=== PATIENT | female | born 1970 | race Caucasian/White ===

== ENCOUNTER → 2017-09-30 | Outpatient (CLI) | payer OTHER, MEDICAID ==
[~2017-09-30] MED LIST: CITA-139 PO; CLON-389 PO; CLON0.255 PO; DOCU240C67 PO; DULERAPT INH; ESCI10TA8 PO; GLUC100026 PO; LAMO25TB2 PO; LORA10CA3 PO; MONT10TA PO; PANT40TA65 PO; PROG100C PO; RANI75TA5 PO; ROPI1TAB35 PO; ROPI1TAB36 PO; SIMV5TAB60 PO; ZOLP-1 PO
--- NOTE | 2017-10-03 11:47 | RADIOLOGY IMAGING REPORT ---
FACILITY: [facility] PATIENT NAME: CASI KENNEDY : [id number] MR: [id number] V: [id number] EXAM DATE: ORDERING PHYSICIAN: JAMIA HUGGINS TECHNOLOGIST: Ivette Rowan PROCEDURE:BILATERAL DIGITAL SCREENING MAMMOGRAM WITH CAD ASSISTED INTERPRETATION & 3D TOMOSYNTHESIS COMPARISON:Prior mammograms 01/08/16, 02/22/14, 07/20/13, 01/23/13, 01/19/13, 07/14/11 INDICATIONS:SCREENING FINDINGS: A small amount of fibroglandular tissue is seen throughout the breasts. The parenchymal pattern has remained stable allowing for difference in mammographic technique & patient positioning. There is no evidence of malignant appearing mass, malignant appearing calcifications or other secondary sign of malignancy in either breast. DIAGNOSTIC CATEGORY 1--NEGATIVE. RECOMMENDATIONS: ROUTINE MAMMOGRAM AND CLINICAL EVALUATION. IMPRESSION: BIRADS 1: Negative No significant abnormality is seen Dictated by: Katrina Germain M.D. on 09/30/2017 at 14:49 Transcribed by: AL on 09/30/2017 at 15:17 Approved by: Katrina Germain M.D. on 10/03/2017 at 11:46 [facility]
== END ==
LOC: MAMO 13:54
PROVIDERS: ATTEND Nurse Practitioner Family
DX: Z12.31 Encounter for screening mammogram for malignant neoplasm of breast (principal)
CPT/HCPCS: 77063; 77067

== ENCOUNTER 2018-04-11 13:50 | Emergency (ER) | payer MEDICAID, OTHER ==
[~2018-04-11 13:50] MED LIST changes: -CITA-139 PO; +CITA-145 PO
--- NOTE | 2018-04-11 13:56 | ER Report ---
History and Physical Time Seen By MD: 13:56 HPI/ROS CHIEF COMPLAINT: Chest tightness HISTORY OF PRESENT ILLNESS: Patient is a 47-year-old female here with complaints of left-sided chest tightness was slight radiation into the shoulder and left arm which started approximately half hour prior to arrival. Patient reports that she was sitting at her computer when she became anxious and mildly short of breath with chest tightness. Denies prior history of cardiac disease however she does have history of anxiety which is treated with hydroxyzine, Wellbutrin. Patient denies fevers, chills, headache, blurred vision, nausea, vomiting, abdominal pain. REVIEW OF SYSTEMS: Constitutional: No fever, no chills. Eyes: No discharge. ENT: No sore throat. Cardiovascular: + chest tightness, no palpitations. Respiratory: No cough, no shortness of breath. Gastrointestinal: No abdominal pain, no vomiting. Genitourinary: No hematuria. Musculoskeletal: No back pain. Skin: No rashes. Neurological: No headache. Allergies: Coded Allergies: Penicillins (Verified Allergy, Unknown, 04/11/18) oxycodone (Verified Allergy, Unknown, 04/11/18) Home Meds Active Scripts Lorazepam (ATIVAN) 1 Mg Tablet, 1 MG PO Q4-6H PRN for ANXIETY, #5 TAB Prov:FEDERICONGHIA S DO 04/11/18 Reported Medications Hydroxyzine Hcl (HYDROXYZINE HCL) 10 Mg Tablet, 10 MG PO 04/11/18 Bupropion Hcl (WELLBUTRIN XL) 150 Mg Tab.er.24h, 150 MG PO QDAY, TAB 04/11/18 Lamotrigine (LAMOTRIGINE) 100 Mg Tablet, 100 MG PO 04/11/18 Simvastatin (SIMVASTATIN) 20 Mg Tablet, 10 MG PO HS, TAB 04/11/18 Zolpidem Tartrate (AMBIEN) 5 Mg Tablet, 1 TAB PO QHS, TAB 06/24/17 Loratadine (CLARITIN) 10 Mg Capsule, 10 MG PO, CAPSULE 06/24/17 Ropinirole Hcl (REQUIP) 1 Mg Tablet, 0.5 MG PO 06/24/17 Glucosamine Sulfate 2KCL (GLUCOSAMINE) 1,000 Mg Tablet, 1000 MG PO 06/24/17 Pantoprazole Sodium (PANTOPRAZOLE SODIUM) 40 Mg Tablet.dr, 40 MG PO QDAY, TAB.SR 06/24/17 Escitalopram Oxalate (ESCITALOPRAM OXALATE) 10 Mg Tablet, 10 MG PO QDAY, TAB 06/24/17 Mometasone/Formoterol (DULERA 200 MCG/5 MCG INHALER) 13 Gm Inh, 13 GM INH, INH 09/19/16 Montelukast Sodium (SINGULAIR) 10 Mg Tablet, 1 TAB PO QDAY, TAB 09/19/16 Discontinued Reported Medications Simvastatin (SIMVASTATIN) 5 Mg Tablet, PO HS, TAB 09/19/16 Lamotrigine (LAMICTAL) 25 Mg Tb.chw.dsp, 250 MG PO 05/09/13 Hx Smoking: Yes (1ppd) Smoking Status: Never Smoker Hx Substance Use Disorder: No Hx Alcohol Use: Yes (rare) Constitutional Vital Sign - Last 24 Hours 04/11/18 04/11/18 04/11/18 04/11/18 13:50 13:55 13:56 14:00 Pulse ? 74 Resp 6 B/P (MAP) 145/105 (118) Pulse Ox 95 04/11/18 04/11/18 04/11/18 04/11/18 14:03 14:03 14:05 14:10 Temp 98.1 Pulse 76 76 73 Resp 14 6 16 B/P (MAP) 157/86 (109) 145/105 Pulse Ox 94 94 94 O2 Delivery Room Air 04/11/18 04/11/18 04/11/18 04/11/18 14:15 14:20 14:25 14:30 Pulse 70 71 ??? 72 Resp 04 12 18 B/P (MAP) 128/108 (115) Pulse Ox 93 92 90 04/11/18 04/11/18 04/11/18 14:35 14:40 14:45 Pulse 68 69 70 Resp 23 18 8 Pulse Ox 93 91 92 Physical Exam General Appearance: The patient is alert, has no immediate need for airway p rotection and no signs of toxicity. NAD Eyes: Pupils equal and round no pallor or injection. ENT, Mouth: Mucous membranes are moist. Respiratory: There are no retractions, lungs are clear to auscultation. Cardiovascular: Regular rate and rhythm. Gastrointestinal: Abdomen is soft and non tender, no masses, bowel sounds normal. Neurological: No focal deficits Skin: Warm and dry, no rashes. Musculoskeletal: Neck is supple non tender. Extremities are nontender, nonswollen and have full range of motion. DIFFERENTIAL DIAGNOSIS: After history and physical exam differential diagnosis was considered for chest pain including but not limited to myocardial ischemia, pericarditis pulmonary embolus, chest wall pain, pleural inflammation and pulmonary infectious causes, anxiety Medical Decision Making Data Points Result Diagram: 04/11/18 1400 04/11/18 1400 Laboratory Hematology Test 04/11/18 14:00 Red Blood Count 4.91 M/uL (4.17-5.56) Mean Corpuscular Volume 83.1 fL (80.0-96.0) Mean Corpuscular Hemoglobin 28.2 pg (26.0-33.0) Mean Corpuscular Hemoglobin Concent 33.9 g/dL (32.0-36.0) Red Cell Distribution Width 15.6 % (11.5-14.5) Mean Platelet Volume 9.6 fL (7.2-11.1) Neutrophils (%) (Auto) 66.5 % (39.4-72.5) Lymphocytes (%) (Auto) 22.9 % (17.6-49.6) Monocytes (%) (Auto) 8.6 % (4.1-12.4) Eosinophils (%) (Auto) 2.0 % (0.4-6.7) Basophils (%) (Auto) 0.0 % (0.3-1.4) Nucleated RBC Relative Count (auto) 0.0 /100WBC Neutrophils # (Auto) 5.6 K/uL (2.0-7.4) Lymphocytes # (Auto) 1.9 K/uL (1.3-3.6) Monocytes # (Auto) 0.7 K/uL (0.3-1.0) Eosinophils # (Auto) 0.2 K/uL (0.0-0.5) Basophils # (Auto) 0.0 K/uL (0.0-0.1) Nucleated RBC Absolute Count (auto) 0.00 K/uL Peripheral Blood Smear No Y/N Sodium Level 141 mmol/L (137-145) Potassium Level 3.8 mmol/L (3.5-5.0) Chloride Level 104 mmol/L (98-107) Carbon Dioxide Level 25 mmol/L (22-31) Blood Urea Nitrogen 15 mg/dl (7-18) Creatinine 0.70 mg/dl (0.52-1.04) Glomerular Filtration Rate Calc > 60.0 Random Glucose 96 mg/dl (75-110) Calcium Level 9.2 mg/dl (8.4-10.2) Total Bilirubin 0.3 mg/dl (0.2-1.3) Aspartate Amino Transf (AST/SGOT) 17 U/L (0-35) Alanine Aminotransferase (ALT/SGPT) 26 U/L (0-56) Alkaline Phosphatase 78 U/L (0-126) Troponin I < 0.012 ng/ml Total Protein 7.3 g/dl (6.3-8.2) Albumin 4.4 g/dl (3.5-5.0) Chemistry Test 04/11/18 14:00 White Blood Count 8.3 k/uL (4.5-11.0) Red Blood Count 4.91 M/uL (4.17-5.56) Hemoglobin 13.8 g/dL (12.0-16.0) Hematocrit 40.8 % (34.0-47.0) Mean Corpuscular Volume 83.1 fL (80.0-96.0) Mean Corpuscular Hemoglobin 28.2 pg (26.0-33.0) Mean Corpuscular Hemoglobin Concent 33.9 g/dL (32.0-36.0) Red Cell Distribution Width 15.6 % (11.5-14.5) Platelet Count 203 K/uL (150-450) Mean Platelet Volume 9.6 fL (7.2-11.1) Neutrophils (%) (Auto) 66.5 % (39.4-72.5) Lymphocytes (%) (Auto) 22.9 % (17.6-49.6) Monocytes (%) (Auto) 8.6 % (4.1-12.4) Eosinophils (%) (Auto) 2.0 % (0.4-6.7) Basophils (%) (Auto) 0.0 % (0.3-1.4) Nucleated RBC Relative Count (auto) 0.0 /100WBC Neutrophils # (Auto) 5.6 K/uL (2.0-7.4) Lymphocytes # (Auto) 1.9 K/uL (1.3-3.6) Monocytes # (Auto) 0.7 K/uL (0.3-1.0) Eosinophils # (Auto) 0.2 K/uL (0.0-0.5) Basophils # (Auto) 0.0 K/uL (0.0-0.1) Nucleated RBC Absolute Count (auto) 0.00 K/uL Peripheral Blood Smear No Y/N Glomerular Filtration Rate Calc > 60.0 Calcium Level 9.2 mg/dl (8.4-10.2) Total Bilirubin 0.3 mg/dl (0.2-1.3) Aspartate Amino Transf (AST/SGOT) 17 U/L (0-35) Alanine Aminotransferase (ALT/SGPT) 26 U/L (0-56) Alkaline Phosphatase 78 U/L (0-126) Troponin I < 0.012 ng/ml Total Protein 7.3 g/dl (6.3-8.2) Albumin 4.4 g/dl (3.5-5.0) EKG/Imaging EKG Interpretation Test Reason : CP Blood Pressure : / mmHG Vent. Rate : 076 BPM Atrial Rate : 076 BPM P-R Int : 152 ms QRS Dur : 098 ms QT Int : 414 ms P-R-T Axes : 056 036 051 degrees QTc Int : 465 ms Normal sinus rhythm T flattening consistent with septal ischemia vs normal variant When compared with ECG of 23-JUN-2017 23:59, No significant change was found Confirmed by GUY GLASS ([id number]) on 04/11/2018 5:08:40 PM Monitor Interpretation: Normal Sinus Rhythm Imaging Study: Frontal and lateral views of the chest Indication: Chest pain Comparison study: June 24, 2017 Findings: PA and lateral views of the chest demonstrate no evidence of acute infiltrate. There is no evidence of pleural effusion. There is no evidence of pneumothorax. The mediastinal, cardiac, and diaphragmatic contours are unremarkable. The visualized bony structures are unremarkable. IMPRESSION: Unremarkable chest. ED Course/Re-evaluation Clinical Indication for ER IV: Hydration, IV Access ED Course Patient is a 47-year-old female here with complaints of chest tightness, anxiety. EKG showed no ischemic changes. Chest x-ray showed no acute findings. Patient was given fluids, Ativan and Toradol with significant relief of symptoms. Troponin was negative. I showed the findings with the patient and she voiced understanding. I advised her to follow-up with her PCP in the next week. Patient was stable at time of discharge. Decision to Disposition Date: Apr 11, 2018 Decision to Disposition Time: 15:56 Depart Departure Latest Vital Signs Vital Signs Date Time Temp Pulse Resp B/P (MAP) Pulse Ox O2 Delivery O2 Flow Rate FiO2 04/11/18 14:45 70 8 92 04/11/18 14:30 128/108 (115) 04/11/18 14:03 98.1 Room Air Impression: Primary Impression: Chest tightness Additional Impression: Anxiety Condition: Improved Disposition: HOME OR SELF-CARE New Scripts Lorazepam (ATIVAN) 1 Mg Tablet 1 MG PO Q4-6H PRN for ANXIETY, #5 TAB Prov: NGHIA CABALLERO DO 04/11/18 Patient Instructions: Anxiety (ED), Chest Wall Pain (ED), Lorazepam (By mouth) Additional Instructions: He may take 1 tablet of Ativan every 6-8 hours as needed for anxiety. Please do not mix with alcohol or drive while taking this medication. Please return promptly if you develop chest pain, shortness of breath, fevers, worsening headache. Problem Qualifiers NGHIA CABALLERO DO Apr 11, 2018 13:56
[2018-04-11] MEDS ORDERED: LAMO100T52 PO (14:02)
[2018-04-11] MEDS ORDERED: SIMV-49 PO (14:02)
[2018-04-11] MEDS ORDERED: BUPR-472 PO (14:02)
[2018-04-11] MEDS ORDERED: HYDR10TA3 PO (14:11)
[2018-04-11] MEDS ORDERED: NS(*) 0.9% 1000 ML BAG 1,000 ML IV ONE (14:14)
[2018-04-11] MEDS ORDERED: LORazepam 2 MG/ML VIAL IVP ONE (14:15)
--- NOTE | 2018-04-11 14:22 | EKG ---
FACILITY: [facility] [place] PATIENT NAME: CASI KENNEDY : [id number] MR: [id number] V: [id number] EXAM DATE: ORDERING PHYSICIAN: NGHIA CABALLERO TECHNOLOGIST: MERRILL Fisher Reason : CP Blood Pressure : / mmHG Vent. Rate : 076 BPM Atrial Rate : 076 BPM P-R Int : 152 ms QRS Dur : 098 ms QT Int : 414 ms P-R-T Axes : 056 036 051 degrees QTc Int : 465 ms Normal sinus rhythm T flattening consistent with septal ischemia vs normal variant When compared with ECG of 23-JUN-2017 23:59, No significant change was found Confirmed by GUY GLASS ([id number]) on 04/11/2018 5:08:40 PM Referred By: Confirmed By:GUY GLASS
[2018-04-11 14:30] VITALS: BP 128/108
[2018-04-11 14:35] LABS: PLATELET COUNT, AUTOMATED 203 K/uL (150-450)
--- NOTE | 2018-04-11 14:51 | RADIOLOGY IMAGING REPORT ---
FACILITY: [facility] PATIENT NAME: Tracy Franklin : 1970 MR: [id number] V: [id number] EXAM DATE: ORDERING PHYSICIAN: NGHIA CABALLERO TECHNOLOGIST: Location: [facility] Patient: Tracy Franklin : 1970 Visit/Account:[id number] Date of Sevice: 04/11/2018 Study: Frontal and lateral views of the chest Indication: Chest pain Comparison study: June 24, 2017 Findings: PA and lateral views of the chest demonstrate no evidence of acute infiltrate. There is no evidence of pleural effusion. There is no evidence of pneumothorax. The mediastinal, cardiac, and diaphragmatic contours are unremarkable. The visualized bony structures are unremarkable. IMPRESSION: Unremarkable chest. Report Dictated By: Uziel Raphael at 04/11/2018 2:46 PM Report E-Signed By: Uziel Raphael at 04/11/2018 2:47 PM WSN:[id number]
[2018-04-11] MEDS ORDERED: KETOROLAC 30 MG/ML VIAL IVP ONE (15:20)
[2018-04-11] MEDS ORDERED: LORA-1456 PO (15:35)
== END 2018-04-11 16:00 | disposition home or self-care (01) ==
LOC: ER 13:58
DX: R07.89 Other chest pain (principal)
CPT/HCPCS: 71046; 84484; 85025; 93005; 96374; 96375; 99284; J1885; J2060; J7030; 82040; 82247; 82310; 82374; 82435; 82565; 82947; 84075; 84132; 84155; 84295; 84450; 84460; 84520

== ENCOUNTER 2018-08-30 08:30 | Outpatient (RCR) | payer OTHER ==
--- NOTE | 2018-07-11 16:13 | OT INITIAL EVALUATION ---
SUBJECTIVE: Patient is a 48 year old right hand dominant female referred to OP OT services via the [facility] for left sided carpal tunnel syndrome. 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 Patient had made some modifications to her work space-an headset for the phone, and ergonomic keyboard, and gel pads for her wrists and left elbow. Patient also reports of symptoms outside of work and when she is working out. Patient reports of pins and needles and a burning and shooting pain all along the left forearm and hand. Previous Medical History: please refer to chart Occupation: [employer]-dispatcher OBJECTIVE: ROM: AROM Right Left Shoulder Flexion WFL WFL Shoulder Extension WFL WFL Shoulder Abduction WFL WFL Elbow Flexion/Extension WFL WFL-patient reports of pain when extending her elbow Wrist Flexion/Extension WFL WFL extra time needed for the patient to perform elbow and write flexion/extension Strength: MMT: Right Left Shoulder Flexion 5/5 5/5 Shoulder Extension 5/5 5/5 Shoulder Abduction 5/5 5/5 Elbow Flexion/Extension 5/5 4/5 Wrist Flexion/Extension 5/5 4/5 (5= normal, 4= good, 3= fair, 2= poor, 1= trace) Drop Wire Operator Right = 66# (Age/gender normative= 62#) Left= 43.7# (Age/gender normative= 56#) Lateral Pinch Right = 18.8# (Age/gender normative=17.6#) Left= 15# (Age/gender normative= 16.6#) 3 Point Pinch Right = 15.7# (Age/gender normative= 17.9#) Left= 11# (Age/gender normative= 17.5#) Sensation: reports of pins and needles on the left forearm and hand, patient reports of a burning and shooting pain when completing assistant grocery store manager and pinch testing ASSESSMENT Patient demonstrates with decreased assistant grocery store manager and pinch strength of the left hand. Patient's reports of her symptoms may also be related to possible lateral epicondylitis in conjunction with carpal tunnel symptoms. Patient demonstrated in the evaluation that she was experiencing discomfort as she shook out her left arm and twisted her left wrist back and forth to alleviate her symptoms. Currently patient does not have any wrist or elbow splints to help manage her symptoms which is necessary for the patient to complete conservative management for her symptoms. OT is recommending that the patient get a wrist brace and a "tennis" elbow brace to help decrease her symptoms. Patient reports that [facility] initial evaluation. Patient is to benefit from OP OT services to help increase functional use of the left hand and elbow and to increase assistant grocery store manager and pinch strength which is being affected due to her symptoms. Short Term Goals 1.Patient will increase assistant grocery store manager strength on the left hand by 5# in order to hold objects with the left hand. 2.Patient will increase 3 point pinch of the left hand by 3# in order to open up packages. 3.Patient will demonstrate the ability to joshua and doff wrist and elbow splints when approved by the [facility]. 4.Patient will be able to complete her home exercise program and report of a decrease in her symptoms. PLAN: Plan to see patient 1 time a week up to 12 visits as approved by the [facility] to increase improve functional use of the left arm. Plan of care to include ther ex, ther act, manual therapy techniques, self cares, home exercise program, off the shelf splint education and management Thank you for this referral. If you have any questions, concerns, or comments about this report or plan, please contact me at [phone]. Samantha Hassan MS, OTR/L Occupational Therapist [facility]
[~2018-08-30 08:30] MED LIST changes: +BUPR-472 PO; +HYDR10TA3 PO; +LAMO100T52 PO; +LORA-1456 PO; -RANI75TA5 PO; +RANI75TA51 PO; +SIMV-49 PO; -SIMV5TAB60 PO; +SIMV5TAB69 PO
--- NOTE | 2018-08-30 08:58 | OT DISCHARGE SUMMARY ---
SUBJECTIVE: Patient is a 48 year old right hand dominant female referred to OP OT services via the [facility] for left sided carpal tunnel syndrome. 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 Patient had made some modifications to her work space-an headset for the phone, and ergonomic keyboard, and gel pads for her wrists and left elbow. Patient also reports of symptoms outside of work and when she is working out. Patient reports of pins and needles and a burning and shooting pain all along the left forearm and hand. Patient was seen in the clinic for evaluation and 2 treatment sessions. 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 OBJECTIVE: ROM: AROM Right Left Shoulder Flexion WFL WFL Shoulder Extension WFL WFL Shoulder Abduction WFL WFL Elbow Flexion/Extension WFL WFL-patient reports of pain when extending her elbow Wrist Flexion/Extension WFL WFL extra time needed for the patient to perform elbow and write flexion/extension Strength: MMT: Right Left Shoulder Flexion 5/5 5/5 Shoulder Extension 5/5 5/5 Shoulder Abduction 5/5 5/5 Elbow Flexion/Extension 5/5 5/5 Wrist Flexion/Extension 5/5 5/5 (5= normal, 4= good, 3= fair, 2= poor, 1= trace) Stain Applicator Right = 66# (Age/gender normative= 62#) Left= 43.7#, now 53.7# (Age/gender normative= 56#) Lateral Pinch Right = 18.8# (Age/gender normative=17.6#) Left= 15#, now 14.8# (Age/gender normative= 16.6#) 3 Point Pinch Right = 15.7# (Age/gender normative= 17.9#) Left= 11#, now 7.8# (Age/gender normative= 17.5#) ASSESSMENT Patient reports that her symptoms have not increased since starting her home program. Patient is wearing an elbow brace during work activities and when working out. The brace appears to be providing the patient with good support and is helping with decreasing her pain and discomfort. Patient is able to complete this program on her home and does not need to come into the clinic for treatments. Patient feels that she is able to continue this conservative treatment on her own. Recommended that the patient contact her provider if her symptoms get worse. Short Term Goals 1.Patient will increase medical sales associate strength on the left hand by 5# in order to hold objects with the left hand. MET 2.Patient will increase 3 point pinch of the left hand by 3# in order to open up packages. NOT MET 3.Patient will demonstrate the ability to joshua and doff wrist and elbow splints when approved by the [facility]. MET 4.Patient will be able to complete her home exercise program and report of a decrease in her symptoms. MET PLAN: Plan to discharge patient from skilled OT services at this time with recommendations to continue with her treatment program on her own. Thank you for this referral. If you have any questions, concerns, or comments about this report or plan, please contact me at [phone]. Samantha Hassan MS, OTR/L Occupational Therapist [facility]
== END 2018-08-30 10:59 | disposition home or self-care (01) ==
LOC: OT 08:30
PROVIDERS: ATTEND Nurse Practitioner Family
DX: G56.02 Carpal tunnel syndrome, left upper limb (principal)
CPT/HCPCS: 97165

== ENCOUNTER → 2018-12-01 | Outpatient (CLI) | payer OTHER ==
--- NOTE | 2018-12-01 14:15 | RADIOLOGY IMAGING REPORT ---
FACILITY: [facility] PATIENT NAME: CASI KENNEDY : [id number] MR: [id number] V: [id number] EXAM DATE: [id number] ORDERING PHYSICIAN: JAMIA HUGGINS TECHNOLOGIST: Ivette Rowan PROCEDURE: BILATERAL DIGITAL SCREENING MAMMOGRAM WITH CAD ASSISTED INTERPRETATION & 3D TOMOSYNTHESIS REASON FOR STUDY: Screening FAMILY HISTORY OF BREAST CANCER: Maternal Grandmother & Paternal Aunt BREAST PROCEDURES/TREATMENTS: None COMPARISON: 09/30/17, 01/08/16, 02/22/14, 07/20/13, 01/23/13, 01/19/13 VIEWS OBTAINED: Bilateral 2D & 3D full field CC & MLO BREAST DENSITY: There are scattered areas of fibroglandular tissue throughout the breasts. MAMMOGRAM FINDINGS: The parenchymal pattern has remained stable allowing for difference in mammographic technique & patient positioning. ASSESSMENT: BIRADS 1: Negative. DIAGNOSTIC CATEGORY 1--NEGATIVE. RECOMMENDATIONS: ROUTINE MAMMOGRAM AND CLINICAL EVALUATION. Dictated by: Katrina Germain M.D. on 12/01/2018 at 11:47 Transcribed by: ALICIA on 12/01/2018 at 14:11 Approved by: Katrina Germain M.D. on 12/01/2018 at 14:13 [facility]
== END ==
LOC: MAMO 07:51
PROVIDERS: ATTEND Nurse Practitioner Family
DX: Z12.31 Encounter for screening mammogram for malignant neoplasm of breast (principal); Z80.3 Family history of malignant neoplasm of breast
CPT/HCPCS: 77063; 77067

== ENCOUNTER → 2019-01-02 | Outpatient (CLI) | payer OTHER ==
--- NOTE | 2019-01-02 09:05 | RADIOLOGY IMAGING REPORT ---
FACILITY: [facility] [place] PATIENT NAME: Tracy Franklin : 1970 MR: [id number] V: [id number] EXAM DATE: ORDERING PHYSICIAN: JAMIA HUGGINS TECHNOLOGIST: Location: [facility] Patient: Tracy Franklin : 1970 Visit/Account:[id number] Date of Sevice: 01/02/2019 MR SPINE LUMBAR W/O CON COMPARISON: None Additional pertinent history: Back and sciatic pain Technique: Multiplanar multisequence lumbar spine MRI was performed without gadolinium enhancement. FINDINGS: Vertebral body heights and alignment: Negative. Vertebral marrow signal: Negative. Distal thoracic cord and conus: Negative The conus ends at T12-L1. Surrounding soft tissues: Negative. Inspection of the disc spaces reveal the following: L5-S1: Posterior broad-based disc protrusion with facet hypertrophic changes. No significant canal o r neural foraminal narrowing. L4-L5: Circumferential disc bulging with facet hypertrophic changes. Mild bilateral neural foraminal narrowing without canal stenosis. L3-L4: Circumferential disc bulging with facet hypertrophic changes. No significant canal or neural foraminal narrowing. L2-L3: Negative. L1-L2: Negative. T12-L1: Negative. IMPRESSION: 1. Spondylitic change involving the lower lumbar spine. 2. Mild bilateral neural foraminal narrowing at L4-L5. 3. No underlying canal stenosis. Report Dictated By: Anshu Diaz MD at 01/02/2019 8:58 AM Report E-Signed By: Anshu Diaz MD at 01/02/2019 9:00 AM WSN:[id number]
== END ==
LOC: MRI 12-14 06:58
PROVIDERS: ATTEND Nurse Practitioner Family
DX: M54.31 Sciatica, right side (principal)
CPT/HCPCS: 72148